=== PATIENT | male | born 1940 | race American Indian/Alaskan Native ===

== ENCOUNTER 2020-06-17 15:49 | Emergency (ER) | payer MEDICARE ==
[2020-06-17] MEDS ORDERED: CALCIUM CHLORIDE 1,000 MG/10 ML SYRINGE IV ONE (15:50)
[2020-06-17] MEDS ORDERED: AMIODARONE 150 MG/3 ML INJ IV ONE (15:50)
[2020-06-17] MEDS ORDERED: EPINEPHrine 1 MG/10 ML SYRINGE ONE (15:50)
--- NOTE | 2020-06-17 20:23 | Emergency Department Report ---
ED CPR HPI - General Chief Complaint: Cardiac Arrest/CPR Stated Complaint: CA Time Seen by Provider: 06/17/20 15:58 Source: EMS Mode of arrival: Stretcher Limitations: Other - History of Present Illness Initial Comments: Chief complaint: Cardiac arrest HPI: This is an 80-year-old male with history of hypertension, CVA who was found unresponsive by his neighbors outside of his apartment. Bystanders did not perform CPR. Upon EMS arrival, PEA rhythm detected. Intubation was unsuccessful. Patient was ventilated through LMA. He received epinephrine and sodium bicarbonate as well as chest compressions. No recent preceding illness according to daughter's report. Complaint: found unresponsive Place: home Bystander CPR Performed: No Shock Advised: No Initial Findings in the Field: unresponsive ROSC in the Field: No Associated Injuries: No ED Review of Systems ROS: Stated complaint: CA Other details as noted in HPI Comment: Unobtainable due to pts medical conditions (Cardiac arrest) ED Past Medical Hx - Past Medical History Previous Medical History?: Yes Hx Hypertension: Yes Hx CVA: Yes - Surgical History Additional Surgical History: Her daughter did not know this information, unable to obtain surgical history - Social History Smoking Status: Unknown if ever smoked (Unable to obtain this information due to patient's condition) Substance Use Type: Other (Unable to obtain this information due to patient's condition) ED Physical Exam - General Limitations: Other General appearance: other (Cardiac arrest, lifeless patient unresponsive receiving chest compressions) - Head Head exam: Present: atraumatic, normocephalic - Eye Eye exam: Present: other (Fixed dilated pupil, eyes open, dry corneas) - ENT ENT exam: Present: other (Pale mucosa LMA in place) - Respiratory Respiratory exam: Present: other (No spontaneous respirations, equal breath sounds with ventilation through LMA) - Cardiovascular Cardiovascular Exam: Present: other (No palpable pulse no auscultated cardiac sounds) - GI/Abdominal GI/Abdominal exam: Present: distended - Extremities Exam Extremities exam: Present: pedal edema (Pedal edema normal, dried lichenified skin in the lower extremities) - Neurological Exam Neurological exam: Present: other (Lifeless no spontaneous breaths or movement) - Psychiatric Psychiatric exam: Present: other (Lifeless no spontaneous movement) - Skin Skin exam: Present: other (Pale skin) ED Medical Decision Making - Medical Decision Making Patient presents in cardiac PEA arrest. Patient continued to receive resuscitation according to ACLS algorithm. Ventilation was adequate with LMA in place. Resuscitation efforts were futile. Time of 1556. I notified daughter Cate Dominguez per phone. Critical care attestation.: If time is entered above; I have spent that time in minutes in the direct care of this critically ill patient, excluding procedure time. ED Disposition Clinical Impression: Cardiac arrest, History of CVA (cerebrovascular accident) Disposition: [id number] LEFT AGAINST MED ADVICE Is pt being admited?: No Does the pt Need Aspirin: No Time of Disposition: 15:56
== END 2020-06-17 18:30 ==
LOC: ED 15:49
DX: I46.9 Cardiac arrest, cause unspecified (principal); I10 Essential (primary) hypertension; Z86.73 Personal history of transient ischemic attack (TIA), and cerebral infarction without residual deficits
CPT/HCPCS: 99285; J0171; J0282